=== PATIENT | female | born 2000 | race Caucasian/White ===

== ENCOUNTER 2022-09-09 15:25 | Emergency (ER) | payer BC ==
[2022-09-09] MEDS ORDERED: Albuterol 6.7 GM Inhaler INH ONE (17:00)
== END 2022-09-09 18:16 | disposition home or self-care (01) ==
LOC: JD.ED 15:25
DX: J06.9 Acute upper respiratory infection, unspecified (principal); Z88.8 Allergy status to other drugs, medicaments and biological substances; Z86.16 Personal history of COVID-19
CPT/HCPCS: 71046; 94640; 99283; A9270; 99282